=== PATIENT | male | born 1950 | race Caucasian/White ===

== ENCOUNTER → 2017-10-03 | Outpatient (CLI) | payer OTHER, BC ==
[~2017-10-03] MED LIST: WARF5TAB7 PO
--- NOTE | 2017-10-03 10:45 | DIAGNOSTIC IMAGING REPORT ---
R KNEE 1 OR 2 VIEWS ROUTINE CLINICAL HISTORY: Right knee pain. No recent trauma. COMPARISON: None FINDINGS: Alignment of the left knee is anatomic. There is a suspected small left knee joint effusion. No fracture is identified. A 1.6 cm lucent focus within the proximal shaft of the right tibia is indeterminate but probably benign. There is a moderate joint space narrowing and osteophytosis within the medial compartment. There is also osteophytosis within the patellofemoral compartment. IMPRESSION: 1. No acute fracture. 2. Moderate osteoarthritis within the medial and patellofemoral compartments of the right knee. 3. Suspected small right knee joint effusion. 4. 1.6 cm lucent focus within the proximal shaft of the right tibia which is indeterminate although statistically benign. Electronically signed by: Mirza Garcia M.D. 10/03/2017 10:44 AM Dictated Date/Time: 10/03/2017 10:42 AM
== END | disposition home or self-care (01) ==
LOC: C.RADBC 09:28
PROVIDERS: ATTEND Physician Assistant Medical
DX: M17.11 Unilateral primary osteoarthritis, right knee (principal); R93.7 Abnormal findings on diagnostic imaging of other parts of musculoskeletal system

== ENCOUNTER → 2017-10-10 | Outpatient (CLI) | payer OTHER, BC ==
[2017-10-10 10:57] LABS: BASO % 0.1 %; BASO ABS # 0.01 K/uL (0-0.2); HEMOGLOBIN 15.9 g/dL (14.0-18.0); IG# 0.04 K/uL (0.00-0.02); LYMPH % 12.5 %; LYMPH ABS # 1.57 K/uL (1.2-3.4); MEAN CELL VOLUME 90.2 fL (80-100); MEAN CORPUSCULAR HEMOGLOBIN 31.2 pg (25-34); MEAN CORPUSCULAR HGB CONC 34.6 g/dl (32-36); MEAN PLATELET VOLUME 10.5 fL (7.4-10.4); MONO % 4.1 %; MONO ABS # 0.51 K/uL (0.11-0.59); NEUT ABS # 10.39 K/uL (1.4-6.5); PLATELET COUNT 338 K/uL (130-400); RED CELL DISTRIBUTION WIDTH CV 15.9 % (11.5-14.5); RED CELL DISTRIBUTION WIDTH SD 52.7 fL (36.4-46.3); WHITE BLOOD COUNT 12.52 K/uL (4.8-10.8)
[2017-10-10 11:16] LABS: HEMOGLOBIN A1C 5.8 % (4.5-5.6)
[2017-10-10 11:27] LABS: ALBUMIN 3.8 gm/dl (3.4-5.0); ALT/SGPT 23 U/L (12-78); AST/SGOT 16 U/L (15-37); BLOOD UREA NITROGEN 23 mg/dl (7-18); CALCIUM 9.3 mg/dl (8.5-10.1); CARBON DIOXIDE 24 mmol/L (21-32); CREATININE 1.17 mg/dl (0.60-1.40); GLUCOSE 117 mg/dl (70-99); POTASSIUM 4.3 mmol/L (3.5-5.1); SODIUM 135 mmol/L (136-145)
[2017-10-10 11:31] LABS: ALKALINE PHOSPHATASE 101 U/L (45-117); CHOLESTEROL 245 mg/dl (0-200); LDL CHOLESTEROL CALCULATED 178 mg/dl; TOTAL PROTEIN 8.3 gm/dl (6.4-8.2)
== END | disposition home or self-care (01) ==
LOC: C.LABBC 08:01
PROVIDERS: ATTEND Physician Assistant Medical
DX: E78.5 Hyperlipidemia, unspecified (principal); R73.01 Impaired fasting glucose; R74.0 Nonspecific elevation of levels of transaminase and lactic acid dehydrogenase [LDH]; I10 Essential (primary) hypertension

== ENCOUNTER → 2017-10-20 | Outpatient (CLI) | payer OTHER, BC ==
[2017-10-20 10:53] LABS: BASO % 0.4 %; BASO ABS # 0.04 K/uL (0-0.2); EOS ABS # 0.34 K/uL (0-0.5); HEMATOCRIT 42.6 % (42-52); HEMOGLOBIN 14.5 g/dL (14.0-18.0); IG# 0.03 K/uL (0.00-0.02); LYMPH % 27.7 %; LYMPH ABS # 3.15 K/uL (1.2-3.4); MEAN CELL VOLUME 91.4 fL (80-100); MEAN CORPUSCULAR HEMOGLOBIN 31.1 pg (25-34); MEAN PLATELET VOLUME 10.4 fL (7.4-10.4); MONO % 10.2 %; MONO ABS # 1.16 K/uL (0.11-0.59); NEUT % 58.4 %; NEUT ABS # 6.66 K/uL (1.4-6.5); PLATELET COUNT 271 K/uL (130-400); RED CELL DISTRIBUTION WIDTH CV 16.1 % (11.5-14.5); RED CELL DISTRIBUTION WIDTH SD 53.4 fL (36.4-46.3); WHITE BLOOD COUNT 11.38 K/uL (4.8-10.8)
== END | disposition home or self-care (01) ==
LOC: C.LABBC 07:58
PROVIDERS: ATTEND Physician Assistant Medical
DX: J01.90 Acute sinusitis, unspecified (principal)

== ENCOUNTER 2019-11-03 06:04 | Observation (INO) ==
--- NOTE | 2019-09-24 08:54 | PAT Medication Instructions ---
Medication Instructions Date of Service September 24, 2019 Home Medications atorvastatin 20 mg tablet 20 mg PO HS aspirin [Aspirin Low Dose] 81 mg PO HS celecoxib 200 mg PO HS lisinopril 10 mg PO HS ASK your surgeon for instructions celecoxib 200 mg PO HS Take evening before surgery atorvastatin 20 mg tablet 20 mg PO HS aspirin [Aspirin Low Dose] 81 mg PO HS lisinopril 10 mg PO HS Other Notes If you have any questions please call us at [phone] or [phone] or [phone] or [phone]
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
--- NOTE | 2019-09-27 09:35 | XRay Report ---
XR chest Pre-admission PA/Lat CLINICAL HISTORY: Preoperative chest COMPARISON STUDY: 08/11/2018 FINDINGS: The cardiac and mediastinal contours remain stable. There is no failure. There is no focal pulmonary consolidation. There are no pleural effusions. There are old left-sided rib fractures. Post surgical changes involve the right humerus.[ IMPRESSION: No active disease in the chest. ACT 112: Negative or not required by law. Electronically signed by: Miko Sim M.D. 09/27/2019 9:34 AM
[2019-09-27 10:28] LABS: Basophils # (auto) 0.06 K/uL (0-0.2); Basophils % (auto) 0.7 %; Eosinophils # (auto) 0.54 K/uL (0-0.5); Eosinophils % (auto) 6.1 %; Hematocrit (blood only) 43.6 % (42-52); Hemoglobin 14.9 g/dL (14.0-18.0); Immature Granulocytes # (auto) 0.02 K/uL (0.00-0.02); Immature Granulocytes % (auto) 0.2 %; Lymphocytes # (auto) 2.42 K/uL (1.2-3.4); Lymphocytes % (auto) 27.3 %; Mean Corpuscular Hemoglobin 31.8 pg (25-34); Mean Corpuscular Hgb Conc 34.2 g/dL (32-36); Mean Corpuscular Volume 93.2 fL (80-100); Mean Platelet Volume 10.4 fL (7.4-10.4); Monocytes # (auto) 0.69 K/uL (0.11-0.59); Monocytes % (auto) 7.8 %; Neutrophils # (auto) 5.15 K/uL (1.4-6.5); Neutrophils % (auto) 57.9 %; Platelet Count 249 K/uL (130-400); RDW Coefficient of Variation 16.2 % (11.5-14.5); RDW Standard Deviation 55.2 fL (36.4-46.3); Red Blood Count 4.68 M/uL (4.7-6.1); White Blood Count 8.88 K/uL (4.8-10.8)
[2019-09-27 10:35] LABS: BUN Creatinine Ratio 21.5 (10-20); Creatinine Clr Calc Pharmacy 74.7 ml/min; Est GFR (African American) 86.9
[2019-09-27 10:45] LABS: Partial Thromboplastin Ratio 0.9; Prothrombin Time 10.4 Seconds (9.0-12.0)
--- NOTE | 2019-09-27 15:15 | Electrocardiogram Report ---
Test Reason : Blood Pressure : / mmHG Vent. Rate : 053 BPM Atrial Rate : 053 BPM P-R Int : 238 ms QRS Dur : 108 ms QT Int : 426 ms P-R-T Axes : 076 082 085 degrees QTc Int : 399 ms Sinus bradycardia with 1st degree A-V block Early repolarization Otherwise normal ECG When compared with ECG of 11-AUG-2018 17:53, NM interval has increased Vent. rate has decreased BY 27 BPM Nonspecific T wave abnormality no longer evident in Inferior leads Nonspecific T wave abnormality, improved in Lateral leads Confirmed by Ryan Carver ([id number]) on 09/27/2019 3:15:22 PM Referred By: Angelito Le Confirmed By:Ryan Carver
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
[~2019-11-03 06:04] MED LIST changes: +ACETAMINOPHEN 500 MG TAB PO SCH; +BUPIVACAINE LIPOSOME/PF 266 MG, BUPIVACAINE/EPINEPHRINE 50 ML, SODIUM CHLORIDE 0.9% 30 ... INFIL SCH; +CEFAZOLIN 2000MG 2,000 MG/15 ML SYR IV SCH; +FAMOTIDINE 20 MG TAB PO SCH; +GABAPENTIN 300 MG CAP PO SCH; +LR 500ML BOLUS, THEN 15ML/HR IV SCH; +LR 60ML/HR IV SCH; +METOCLOPRAMIDE HCL 10 MG TABLET PO SCH; +TRANEXAMIC ACID 1,000 MG **IV Intra-op IV SCH; +TRANEXAMIC ACID 1,000 MG **IV Pre-op IV SCH; -WARF5TAB7 PO
[2019-11-03] MEDS ORDERED: BUPIVACAINE 0.5 % 5 MG/1 ML PF 10ML VIAL ONE (06:35)
[2019-11-03] MEDS ORDERED: BUPIVACAINE/EPINEPHRINE 0.25% 1:200,000 30 ML VIAL ONE ×2 (06:35→08:38)
[2019-11-03] MEDS ORDERED: TRANEXAMIC ACID / 0.7% NACL 1000MG/100ML BAG IV ONE (06:38)
--- NOTE | 2019-11-03 06:56 | History & Physical Bridge Note ---
Date of Service November 03, 2019 History & Physical Bridge Note I have examined the patient, reviewed the History & Physical and in the interval since the performance of the History & Physical I have noted the following changes of clinical significance: no changes noted
[2019-11-03] MEDS ORDERED: LIDOCAINE HCL 2% 2 ML VIAL/AMP(20MG/ML) INFIL ONE (07:48)
[2019-11-03] MEDS ORDERED: MIDAZOLAM HCL 1 MG/ML 2ML VIAL ONE (07:48)
[2019-11-03] MEDS ORDERED: PROPOFOL IV EMULSION 10 MG/ML 20 ML VIAL IV ONE (07:48)
[2019-11-03] MEDS ORDERED: ONDANSETRON INJ 2 MG/ML 2 ML VIAL IV PRN ×2 (08:01→12:04)
[2019-11-03] MEDS ORDERED: ePHEDrine sulfate 50 MG/ML AMP IV PRN (08:01)
[2019-11-03] MEDS ORDERED: HYDROmorphone INJ 2 MG/ML SYR/VIAL IV PRN (08:01)
[2019-11-03] MEDS ORDERED: fentaNYL citrate 100 MCG/2 ML VIAL IV PRN (08:01)
[2019-11-03] MEDS ORDERED: ATROPINE SULFATE 0.1 MG/ML 10ML SYR IV PRN (08:01)
[2019-11-03] MEDS ORDERED: BACITRACIN INJ 50,000 UNIT VIAL ONE (08:38)
[2019-11-03] MEDS ORDERED: BUPIVACAINE LIPOSOME 1.3% 266 MG/20 ML VIAL ONE (08:38)
[2019-11-03] MEDS ORDERED: SODIUM CHLORIDE 0.9% PF 50 ML VIAL ONE (08:38)
[2019-11-03] MEDS ORDERED: GLYCOPYRROLATE 0.2 MG/ML VIAL ONE (09:32)
--- NOTE | 2019-11-03 11:12 | Operative Report ---
Post Operative Report Pre & Post Diagnosis Operation Date: 11/03/19 08:50 Pre-Op Diagnosis: Right Knee Medial Compartment Degenerative Joint Disease Post-Op Diagnosis: Right Knee Medial Compartment Degenerative Joint Disease I identified the patient and participated in the time-out.: Yes Procedure Operation Date: 11/03/19 08:50 Actual Procedures p Right Unicompartmental Knee Arthroplasty (Right) - Angelito Le MD Surgeon Angelito Le MD Creative Technologist Carlos, PAC Estimated Blood Loss 25 Findings Consistent with Post-Op Diagnosis Operative findings revealed advanced right knee medial compartment DJD with grade 4 [id number] disease and eburnation of the medial femoral condyle. His patellofemoral compartment was quite pristine and the lateral compartment was also very well preserved. Fluids 1300 cc Specimens Right knee sent for pathology. Drains None. Anesthesia Type Spinal MAC Complications none Disposition Accompanied Patient To Recovery: Yes Disposition: Recovery Room Indications Patient is a 69-year-old fairly active gentleman is had a several year history of increasing right medial sided knee pain discomfort. Does have a history of a knee arthroscopy done many years ago. He has been treated conservatively with injections and medicines. This became less successful over time. X-rays showed advanced isolated medial compartment arthritis. He elected proceed with partial knee replacement. Description of Procedure Operative implants consist of: 1. [employer]omet [place] size large medial femoral component. 2. Biomet [place] right medial size D tibial tray. 3. 4 mm mobile-bearing insert. Patient was taken to the operating room identified placed in the operating table supine position protectors were properly padded. IV antibiotics were 5 by anesthesia team. A spinal anesthetic and abductor canal block had provided holding area. Valentin cath was placed in sterile fashion the right factor was then placed in the right lower extremities and prepped and draped in usual sterile fashion. The right leg was elevated and exsanguinated with use of an Esmarch and turns placed at 300 mmHg. An anterior approach to the knee was then performed to a longitudinal incision beginning at the superior pole of the patella and extending just medial to the tibial tubercle. Sharp dissection was cut through subcutaneous tissue down to the extensor mechanism. The subcutaneous tissues were mobilized circumferentially. A medial parapatellar arthrotomy incision was made. Some slight subperiosteal dissection was carried out medially. The fat pad was resected. I then examined the knee. The ACL was intact. The lateral compartment and patellofemoral compartments were white quite pristine. We elected proceed with right partial knee replacement. An osteotome was used to remove the intercondylar notch osteophyte. The femur was then sized to a size large. The external tibial alignment jig was then placed in the interface of the tibia and attached to the large spoon with a 4G clamp. The proximal tibial guide was then pinned in place and the proximal tibial cut was made. I sized the tibia to a size D. I did repeat there was step cut in order to move it a little bit more laterally in order to get better coverage. We did create took great care to avoid injury to the ACL. Attention drawn the femur. The distal femur then with a sharp drop with intramedullary guide was placed. The femoral template was then placed and attached to the intramedullary guide. Holes were drilled for the femoral component. The posterior cutting guide was placed in the posterior cut was made. I then used a 0 spigot milled the distal femur. We then trialed the knee and the 4 feeler gauge fit and flexion and the one in extension. Therefore we used a 3 spigot and milled the femur again. We then trialed the knee and the 4 feeler gauge fit appropriately in flexion extension. We elect to place these implants and prepare the knee for implantation. The femoral posterior osteophyte cutting guide was placed. The reamer was used to mill the anterior femur for the femoral component. The chisel was then used to remove the posterior osteophyte. The implant the guide was then removed and cement holes were drilled the distal femur for cement and interdigitation. Some residual cartilage was scraped off down to bone. Attention drawn the tibia. The tibial tray was pinned in place. The toothbrush blade was used to create the keel for the tibial tray. We then trialed the knee and the 4 implant fit appropriately and everything tracked nicely. Would like to place these implants. All trial implants were removed. I irrigated extensively. A single batch [place] G cement was mixed. Biomet [place] right medial size D tibial tray was then cemented in place followed by a large femoral component. The 4 feeler gauge was placed. All extraneous cement was removed and the knee was brought out into about the 30 degrees short full extension until cement hardened. Final cement check was then performed. We trialed the knee again and then elected to place a 4 insert. The permanent 4 insert was placed. The wound was irrigated with copious of normal saline. I did inject locally with total 100 cc of combination of 20 cc of Exparel, 30 cc normal saline, 50 cc of quarter percent Marcaine with epinephrine. Patient did receive 1 g of tranexamic acid per the tourniquet was then let down for turn time 69 minutes. Hemostasis assured use electrocautery. The wounds once again irrigated. The extensor mechanism then closed with #1 Vicryl suture in [id number] fashion. The subcutaneous tissue then closed with 2-0 Dexon suture in a buried interrupted fashion skin was closed skin licha. Leg was then cleaned dried a sterile dressing composed Xeroform, 4 x 4's, sterile cast padding, Kirill bandage were applied. Patient transferred to the recovery room in stable condition. Patient tolerated she will not complications. I attest to the content of the Intraoperative Record and any orders documented therein. Any exceptions are noted below.
--- NOTE | 2019-11-03 11:30 | Anesthesiology Progress Note ---
Date of Service November 03, 2019 Anesthesia Post Procedure Vital Signs Vital Signs: Temp Pulse Pulse Resp BP Pulse Ox 11/03/19 11:25 36.3 C L 56 L 15 136/79 94 11/03/19 11:15 52 L 14 132/85 97 11/03/19 11:05 56 L 12 127/74 96 11/03/19 10:59 36.5 C 66 16 136/76 96 11/03/19 06:46 36.6 C 62 20 130/76 98 Transfer of Care Handoff Completed per policy Notes Mental Status: alert / awake / arousable and participated in evaluation Patient Amnestic to Procedure: Yes Nausea / Vomiting: adequately controlled Pain: adequately controlled Airway Patency, RR, SpO2: stable & adequate BP & HR: stable & adequate Hydration State: stable & adequate Anesthetic Complications: no major complications apparent and Pt Satisfied with anesthetic care
--- NOTE | 2019-11-03 11:34 | XRay Report ---
TWO VIEWS RIGHT KNEE CLINICAL HISTORY: Postoperative examination. FINDINGS: AP and crosstable lateral portable views of the right knee are obtained. A medial compartme nt hemiarthroplasty of the right knee is in near anatomic alignment. No acute fracture is seen. There are expected postoperative changes around the knee including skin clips, soft tissue edema, and subc utaneous gas. IMPRESSION: Expected postoperative changes status post right knee hemiarthroplasty. No acute fracture is seen. ACT 112: Negative or not required by law. Electronically signed by: Kenan Reis M.D. 11/03/2019 11:33 AM
[2019-11-03] MEDS ORDERED: TAMSULOSIN HCL 0.4 MG CAP PO PRN (12:04)
[2019-11-03] MEDS ORDERED: bisacodyL 10 MG SUPP PR PRN (12:04)
[2019-11-03] MEDS ORDERED: HYDROmorphone INJ 0.5 MG/0.5 ML SYR IV PRN (12:04)
[2019-11-03] MEDS ORDERED: METOCLOPRAMIDE HCL INJ 5 MG/ML 2 ML VIAL IV PRN (12:04)
[2019-11-03] MEDS ORDERED: MAGNESIUM HYDROXIDE SUSP 30 ML UDC PO PRN (12:04)
[2019-11-03] MEDS ORDERED: NALOXONE HCL 0.4 MG/1 ML VIAL/CARP IV PRN (12:04)
[2019-11-03] MEDS ORDERED: ALUMINUM/MAGNESIUM SUSP 30 ML UDC PO PRN (12:04)
[2019-11-03] MEDS: GENERAL ORDER PROBLEM SCH ×3 (13:11→13:13)
[2019-11-03] MEDS: SODIUM CHLORIDE 0.9% 1000ML 1,000 ML IV SCH ×2 (13:20→22:39)
[2019-11-03] MEDS: KETOROLAC TROMETHAMINE 15 MG/ML VIAL IV SCH ×2 (13:21→20:07)
[2019-11-03] MEDS: ACETAMINOPHEN 500 MG TAB PO SCH ×2 (14:07→21:38)
[2019-11-03] MEDS: ASCORBIC ACID 500 MG TAB PO SCH (16:28)
[2019-11-03] MEDS: CEFAZOLIN 2000MG 2,000 MG/15 ML SYR IV SCH (16:29)
[2019-11-03] MEDS ORDERED: SENNA 8.6 MG TAB PO SCH (21:00)
[2019-11-03] MEDS ORDERED: ATORVASTATIN 20 MG TAB PO SCH (21:00)
[2019-11-03] MEDS ORDERED: lisinopriL 10 MG TAB PO SCH (21:00)
[2019-11-03] MEDS: DOCUSATE SODIUM 100 MG CAP PO SCH (21:35)
[2019-11-03] MEDS: TRAMADOL HCL 50 MG TABLET PO PRN (21:37)
[2019-11-03] MEDS: ASPIRIN 81 MG ECTAB PO SCH (21:38)
[2019-11-04] MEDS: KETOROLAC TROMETHAMINE 15 MG/ML VIAL IV SCH ×3 (01:58→12:04)
[2019-11-04] MEDS: CEFAZOLIN 2000MG 2,000 MG/15 ML SYR IV SCH (01:58)
[2019-11-04 05:36] LABS: Hemoglobin 12.3 g/dL (14.0-18.0); Mean Corpuscular Hemoglobin 30.5 pg (25-34); Mean Corpuscular Hgb Conc 33.2 g/dL (32-36); Mean Corpuscular Volume 91.8 fL (80-100); Platelet Count 206 K/uL (130-400); RDW Coefficient of Variation 16.5 % (11.5-14.5); RDW Standard Deviation 55.5 fL (36.4-46.3); Red Blood Count 4.03 M/uL (4.7-6.1); White Blood Count 11.45 K/uL (4.8-10.8)
[2019-11-04] MEDS: ACETAMINOPHEN 500 MG TAB PO SCH (05:49)
[2019-11-04 06:13] LABS: BUN Creatinine Ratio 17.2 (10-20); Calcium 8.6 mg/dl (8.5-10.1); Creatinine Clr Calc Pharmacy 64.2 ml/min; Est GFR (African American) 75.1; Est GFR (Non-African American) 64.8; Potassium 4.6 mmol/L (3.5-5.1)
[2019-11-04] MEDS: DOCUSATE SODIUM 100 MG CAP PO SCH (07:44)
[2019-11-04] MEDS: ASCORBIC ACID 500 MG TAB PO SCH (07:44)
[2019-11-04] MEDS: ASPIRIN 81 MG ECTAB PO SCH (07:44)
--- NOTE | 2019-11-04 08:06 | Progress Note ---
DATE: 11/04/2019 SUBJECTIVE: A 69-year-old gentleman postop day 1 from a right partial knee replacement. He is doing pretty well. Pain is controlled. No chest pain or shortness of breath. Not feeling dizzy or lightheaded. OBJECTIVE: VITAL SIGNS: Temperature 36.6. Vital signs stable. GENERAL: Shows a pleasant, middle-aged male. We had to wake him this morning. EXTREMITIES: Examination of the right leg reveals the leg to be well aligned. Dressing is clean, dry, and intact. He can do a straight leg raise. He can dorsiflex and plantarflex his foot appropriately. LABORATORY DATA: Hemoglobin 12.3. Hematocrit 37.0. Electrolytes are stable. ASSESSMENT: A 69-year-old gentleman postop day 1 from a right partial knee replacement, doing pretty well. Pain is controlled. He is neurologically intact. PLAN: 1. DVT prophylaxis including thigh-high TEDs, SCDs, and aspirin twice a day. 2. PT/OT. Weight bear as tolerated. Right total knee protocol. 3. Pain control, doing well with current pain regimen. 4. Disposition: Plan to discharge to home with some home health after therapy today.
[2019-11-04] MEDS ORDERED: NON-FORMULARY MEDICATION (Vitamins A,C,E-Zinc-Copper [Preservision Areds] 1 TAB) PO SCH (09:00)
[2019-11-04] MEDS ORDERED: MULTIVITAMIN TAB PO SCH (09:00)
--- NOTE | 2019-11-04 09:49 | Anesthesiology Progress Note ---
Date of Service November 04, 2019 Anesthesia Post Procedure Vital Signs Vital Signs: Temp Pulse Pulse Pulse Resp BP Pulse Ox 11/04/19 08:35 36.5 C 57 L 18 149/81 H 97 11/04/19 03:39 36.6 C 55 L 18 120/72 95 11/03/19 23:16 36.6 C 57 L 17 137/79 96 11/03/19 19:40 92 H 119/70 11/03/19 19:04 36.7 C 64 17 108/62 95 11/03/19 15:19 36.3 C L 71 18 136/76 97 11/03/19 13:56 54 L 18 156/81 H 97 11/03/19 12:55 36.6 C 64 14 145/82 H 98 11/03/19 12:22 36.4 C L 66 16 149/87 H 97 11/03/19 11:55 36.5 C 69 16 135/81 97 11/03/19 11:35 76 19 136/82 96 11/03/19 11:25 36.3 C L 56 L 15 136/79 94 11/03/19 11:15 52 L 14 132/85 97 11/03/19 11:05 56 L 12 127/74 96 11/03/19 10:59 36.5 C 66 16 136/76 96 Notes Mental Status: alert / awake / arousable and participated in evaluation Patient Amnestic to Procedure: Yes Nausea / Vomiting: adequately controlled Pain: adequately controlled Airway Patency, RR, SpO2: stable & adequate BP & HR: stable & adequate Hydration State: stable & adequate Neuraxial Anesthesia: was administered and sensory block resolved Anesthetic Complications: no major complications apparent and Pt Satisfied with anesthetic care
[2019-11-04] MEDS: TRAMADOL HCL 50 MG TABLET PO PRN (11:35)
--- NOTE | 2019-11-05 13:43 | Discharge Summary ---
ADMITTING PHYSICIAN AND SURGEON: Dr. Angelito Le. ADMITTING DIAGNOSIS: Right knee medial compartment degenerative joint disease. SURGERY PERFORMED: Right unicompartmental knee arthroplasty. SECONDARY DIAGNOSES: Elevated cholesterol, hypertension and DVT. CONSULTS: None obtained. HISTORY AND PHYSICAL EXAMINATION: Well documented in the patient's chart. HOSPITAL COURSE: The patient was admitted on 11/03/2019 underwent unicompartmental arthroplasty. He tolerated the procedure well. There were no complications. He was transferred to the PACU postoperatively and later to the orthopedic floor for further care. He was given Ancef for antibiotic prophylaxis, ABDON stockings, SCDs and aspirin for DVT prophylaxis. Hemoglobin, hematocrit and vital signs were monitored during his hospital stay and remained stable, did not require any blood transfusions. By postoperative day 1 he was tolerating a regular diet, pain was controlled with oral pain medicine. He was participating in physical therapy. Postop day 1 he was discharged home, set up with home health services. He was given printed discharge instructions as well as new prescriptions for extra strength Tylenol, aspirin and tramadol. Continue his home medicines. Continue physical therapy, weightbearing as tolerated, ABDON stockings. Follow up approximately 2 weeks postop.
== END 2019-11-04 13:39 | disposition home health service (06) ==
LOC: ASU 06:04 → 3E 06:04